=== PATIENT | male | born 1980 | race Caucasian/White ===

== ENCOUNTER 2022-03-05 05:12 | Emergency (ER) | payer MEDICAID, SELFPAY ==
[2022-03-05 05:15] VITALS: BP 152/89; PULSE 55; RESP 18; TEMP 36.6; O2SAT 99; BMI 25.0
[2022-03-05 05:34] LABS: Basophils # 0.1 10^3/uL (0.0-0.1); Basophils % 0.5 %; Eosinophils # 0.1 10^3/uL (0.0-0.8); Eosinophils % 1.1 %; Hematocrit 44.3 % (42.0-52.0); Hemoglobin 14.8 g/dL (11.7-16.6); Lymphocytes # 1.7 10^3/uL (0.8-4.8); Lymphocytes % 13.2 %; Mean Corpuscular HGB Conc 33.4 g/dL (30.0-36.0); Mean Corpuscular Volume 89.7 fl (80-94); Mean Platelet Volume 9.6 fL (7.4-10.4); Monocytes # 0.6 10^3/uL (0.2-0.9); Monocytes % 4.6 %; Neutrophils # 10.39 10^3/uL (1.8-7.7); Neutrophils % 80.1 %; Nucleated Red Blood Cells % 0 %; Platelet Count 220 10^3/cmm (130-400); Red Blood Count 4.94 10^6/uL (4.1-5.3); Red Cell Distribution Width 12.6 % (12.1-15.1)
--- NOTE | 2022-03-05 05:39 | CTR_ITS ---
PROCEDURE INFORMATION: Exam: CT Abdomen And Pelvis Without Contrast Exam date and time: 03/05/2022 5:54 AM Age: 41 years old Clinical indication: Abdominal pain; Flank; Left; Additional info: L flank pain TECHNIQUE: Imaging protocol: Computed tomography of the abdomen and pelvis without contrast. Radiation optimization: All CT scans at this facility use at least one of these dose optimization techniques: automated exposure control; mA and/or kV adjustment per patient size (includes targeted exams where dose is matched to clinical indication); or iterative reconstruction. COMPARISON: No relevant prior studies available. RADIATION DOSE METRICS: Total DLP (mGy-cm): 441.9 FINDINGS: Liver: No acute abnormality on noncontrast imaging. Gallbladder and bile ducts: No acute abnormality. No calcified stones. No ductal dilation. Pancreas: No acute abnormality. No ductal dilation. Spleen: No acute abnormality. Adrenal glands: No acute abnormality. No mass. Kidneys and ureters: Moderate left hydroureteronephrosis secondary to a 6 x 5 mm distal left ureteral calculus or calculi cluster just above the left UVJ. Nonobstructing bilateral renal calculi including 9 mm left renal lower pole calculus. Stomach and bowel: No acute abnormality. No obstruction. No significant bowel thickening. Appendix: No findings to suggest acute appendicitis. Intraperitoneal space: No significant fluid collection. No free air. Vasculature: No acute abnormality. No abdominal aortic aneurysm. Lymph nodes: No enlarged lymph nodes. Urinary bladder: Nondistended urinary bladder. No bladder calculi. Reproductive: Small prostate calcifications. Bones/joints: Old/chronic T12 vertebral body compression fracture with anterior wedging. Soft tissues: No significant soft tissue abnormalities. CT/CT kidney stone [id number] IMPRESSION: 1. Moderate left hydroureteronephrosis secondary to a 6 x 5 mm distal left ureteral calculus or calculi cluster just above the left UVJ. 2. Nonobstructing bilateral renal calculi including 9 mm left renal lower pole calculus.
[2022-03-05] MEDS: sodium chloride 0.9% 1,000 ML 999 ML IV (05:48)
[2022-03-05] MEDS: ondansetron 2 mg/ML SDV 2 mL 4 MG IVP (05:49)
[2022-03-05 05:50] LABS: Alanine Aminotransferase 24 U/L (0-41); Albumin Level 4.3 g/dL (3.5-5.2); Alkaline Phosphatase 72 U/L (40-130); Aspartate Amino Transferase 19 U/L (0-40); Blood Urea Nitrogen 14 mg/dL (6-20); Calcium 9.1 mg/dL (8.5-10.5); Carbon Dioxide 29 mmol/L (22-29); Chloride 105 mmol/L (98-107); Globulin 2.6 g/dL (1.3-4.6); Glomerular Filtration Rate 73.8 mL/min (90-130); Glucose 151 mg/dL (65-115); Lactate (Lactic Acid level) 2.2 mmol/L (0.5-2.2); Lipase 54 U/L (13-60); Osmolality Calculated 297 mOsm/kg (285-295); Sodium 142 mmol/L (136-145); Total Bilirubin 0.4 mg/dL (0.15-1.2); Total Protein 6.9 g/dL (6.6-8.7)
--- NOTE | 2022-03-05 06:00 | ED_ITS ---
Documented by User: Julio Marie, DO 03/05/22 18:29 HPI - Male Genitourinary General: Chief complaint: Urogenital-Male Stated complaint: Low back pain Time Seen by Provider: 03/05/22 05:27 History of Present Illness: 41-year-old male who says he has a known 9 mm left kidney stone. He has had pain on and off for a couple of weeks. He has been doing well until this morning, when he awoke with intense left flank pain radiating to his belly. He vomited a couple of times on the way here. No fever. He is still able to urinate. He notes that his urine looks a little funny . Physical Exam : BLADDER/KIDNEY EXAM: Yes CVA tenderness on the left Back/Pelvis: GENERAL BACK: Yes CVA tenderness Course Vital Signs: Vital signs: Vital Signs Temperature 97.9 F 03/05/22 05:15 Pulse Rate 57 L 03/05/22 08:29 Respiratory Rate 18 03/05/22 08:29 Blood Pressure 107/70 03/05/22 08:29 Pulse Oximetry 98 03/05/22 08:29 Oxygen Delivery Me thod 03/05/22 05:15 MDM - Male Medical Decision Making White blood cell count is 13. BMP is not remarkable. BUN and creatinine are normal. Lactate is 2.2. Lipase is normal. CT stone protocol is pending. On arrival, the patient began to feel better. Currently, he is not experiencing significant nausea or pain. He will be checked out at shift change pending CT results. Lab Data : 03/05/22 05:26 03/05/22 05:26 Radiology Impressions Abdomen/Pelvis CT 03/05/22 05:39 IMPRESSION: 1. Moderate left hydroureteronephrosis secondary to a 6 x 5 mm distal left ureteral calculus or calculi cluster just above the left UVJ. 2. Nonobstructing bilateral renal calculi including 9 mm left renal lower pole calculus. Laboratory Results WBC 13.0 10^3/uL (4.0-10.0) H 03/05/22 05:26 RBC 4.94 10^6/uL (4.1-5.3) 03/05/22 05:26 Hgb 14.8 g/dL (11.7-16.6) 03/05/22 05:26 Hct 44.3 % (42.0-52.0) 03/05/22 05:26 MCV 89.7 fl (80-94) 03/05/22 05:26 MCH 30.0 pg (28.0-34.0) 03/05/22 05:26 MCHC 33.4 g/dL (30.0-36.0) 03/05/22 05:26 RDW 12.6 % (12.1-15.1) 03/05/22 05:26 Plt Count 220 10^3/cmm (130-400) 03/05/22 05:26 MPV 9.6 fL (7.4-10.4) 03/05/22 05:26 Neut % (Auto) 80.1 % 03/05/22 05:26 Lymph % (Auto) 13.2 % 03/05/22 05:26 Woods % (Auto) 4.6 % 03/05/22 05:26 Eos % (Auto) 1.1 % 03/05/22 05:26 Baso % (Auto) 0.5 % 03/05/22 05:26 Neut # (Auto) 10.39 10^3/uL (1.8-7.7) H 03/05/22 05:26 Lymph # (Auto) 1.7 10^3/uL (0.8-4.8) 03/05/22 05:26 [place] # (Auto) 0.6 10^3/uL (0.2-0.9) 03/05/22 05:26 Eos # (Auto) 0.1 10^3/uL (0.0-0.8) 03/05/22 05:26 Baso # (Auto) 0.1 10^3/uL (0.0-0.1) 03/05/22 05:26 Nucleated RBC % (auto) 0 % 03/05/22 05:26 Nucleated RBCs # 0.0 /100WBC 03/05/22 05:26 Sodium 142 mmol/L (136-145) 03/05/22 05:26 Potassium 4.0 mmol/L (3.5-5.1) 03/05/22 05:26 Chloride 105 mmol/L (98-107) 03/05/22 05:26 Carbon Dioxide 29 mmol/L (22-29) 03/05/22 05:26 Anion Gap 12.0 (5-19) 03/05/22 05:26 BUN 14 mg/dL (6-20) 03/05/22 05:26 Creatinine 1.1 mg/dL (0.7-1.2) 03/05/22 05:26 GFR Calculation 73.8 mL/min (90-130) L 03/05/22 05:26 Glucose 151 mg/dL (65-115) H 03/05/22 05:26 Calculated Osmolality 297 mOsm/kg (285-295) H 03/05/22 05:26 Lactate 2.2 mmol/L (0.5-2.2) 03/05/22 05:26 Calcium 9.1 mg/dL (8.5-10.5) 03/05/22 05:26 Total Bilirubin 0.4 mg/dL (0.15-1.2) 03/05/22 05:26 AST 19 U/L (0-40) 03/05/22 05:26 ALT 24 U/L (0-41) 03/05/22 05:26 Alkaline Phosphatase 72 U/L (40-130) 03/05/22 05:26 C-Reactive Protein 3.0 mg/L (0.0-4.9) 03/05/22 05:26 Total Protein 6.9 g/dL (6.6-8.7) 03/05/22 05:26 Albumin 4.3 g/dL (3.5-5.2) 03/05/22 05:26 Globulin 2.6 g/dL (1.3-4.6) 03/05/22 05:26 Lipase 54 U/L (13-60) 03/05/22 05:26 Urine Color Yellow (Yellow) 03/05/22 06:52 Urine Appearance Clear (CLEAR) 03/05/22 06:52 Urine pH 5 (5-7) 03/05/22 06:52 Ur Specific [place] 1.025 (1.005-1.030) 03/05/22 06:52 Urine Protein Neg (Negative) 03/05/22 06:52 Urine Glucose (UA) Norm (Normal) 03/05/22 06:52 Urine Ketones Negative (Negative) 03/05/22 06:52 Urine Blood 3+ (Negative) H 03/05/22 06:52 Urine Nitrate Negative (Negative) 03/05/22 06:52 Urine Bilirubin Neg (Negative) 03/05/22 06:52 Urine Urobilinogen Norm mg/dL (Negative) 03/05/22 06:52 Ur Leukocyte Esterase Negative (Negative) 03/05/22 06:52 Urine RBC 10-15 /hpf (0-2) H 03/05/22 06:52 Urine WBC 15-25 /hpf (0-5) H 03/05/22 06:52 Ur Squamous Epith Cells None /hpf (0-5) 03/05/22 06:52 Calcium Oxalate Crystal 0-4 /hpf H 03/05/22 06:52 Amorphous Sediment Not Reportable 03/05/22 06:52 Urine Bacteria 1+ /hpf (NONE) H 03/05/22 06:52 Urine Mucus 1+ /hpf 03/05/22 06:52 Discharge Plan Discharge Patient Disposition: Home Clinical Impression: Renal colic Condition: Stable Prescriptions: New oxycodone 5 mg capsule 5 mg PO Q6H PRN (Reason: pain) Qty: 10 0RF diclofenac sodium 75 mg tablet,delayed release (DR/EC) 75 mg PO BID Qty: 30 0RF Discharge Orders: Discharge ED (Routine); Ordered 03/05/22 Ordered By: Hermann Alegria Referrals: Caroline Odom FNP [Primary Care Provider] - Patient Instructions: Abdominal Pain (ED), Opioid Safety, Pain Management Activity Restrictions/Additional Instructions: Return for fever greater than 100, vomiting liquids or medications, worsening pain despite treatment, other concerning symptoms. Coding Level of Care Code ED Product Development Intern for Chg Fwd Exam Comprehensive Documented by User: Hermann Alegria DO 03/05/22 08:05 HPI - Male Genitourinary General: Chief complaint: Urogenital-Male Stated complaint: Low back pain Time Seen by Provider: 03/05/22 05:27 Review of Systems General: Reports: 10 or more systems reviewed and unremarkable except in HPI and below Physical Exam Const: COMMON NORMALS: no acute distress, patient oriented x3 and alert GENERAL APPEARANCE: cooperative ORIENTATION/CONSCIOUSNESS: Yes awake, Yes oriented to person, Yes oriented to place and Yes oriented to time HENMT: COMMON NORMALS: normocephalic, atraumatic, external ears normal, Normal external nose present and moist oral mucous membranes HEAD & SCALP: normal to inspection, normocephalic and atraumatic NOSE: Normal external nose present GENERAL EAR: hearing grossly impaired EXTERNAL EAR: Yes external ears normal Eye: COMMON NORMALS: Equal, round and reactive pupils present, EOMs intact bilaterally, conjunctivae normal and no scleral icterus GENERAL EYE: lisa earance normal, both eyes and all related structures EYELID: eyelids normal CONJUNCTIVA: Yes conjunctivae normal SCLERA: sclerae normal PUPIL: Yes Equal, round and reactive pupils present Neck/C-Spine: COMMON NORMALS: full ROM, supple and no JVD GENERAL: Yes normal visual inspection Lymph: LYMPHATIC: no lymphadenopathy noted and no lymphedema noted Chest: COMMONS NORMALS: normal inspection of the chest Resp: COMMON NORMALS: normal respiratory effort, No retractions and No use of accessory muscles Cardio: COMMON NORMALS: no JVD, regular rate and regular rhythm RATE: regular rate RHYTHM: regular rhythm GI: COMMON NORMALS: Normal to inspection, nondistended, normoactive bowel sounds present : COMMON NORMALS: Yes no CVA tenderness BLADDER/KIDNEY EXAM: Yes no CVA tenderness Back/Pelvis: COMMON NORMALS: no CVA tenderness and thoracic and lumbar spine normal to inspection Extremity: COMMON NORMALS: normal to inspection, full ROM and capillary refill normal GENERAL: Yes normal exam except as noted Neuro: COMMON NORMALS: patient oriented x3, CN's II-XII intact bilaterally, moves all extremities, no focal motor deficits, no sensory deficits noted and gait normal SENSORIUM/ORIENTATION: Yes alert, Yes oriented to person, Yes oriented to place and Yes oriented to time Psych: COMMON NORMALS: mental status grossly normal, Normal thought process present, cooperative and normal affect THOUGHT PROCESS: Normal thought process present Skin: COMMON NORMALS: no rashes or lesions noted and no wounds GENERAL SKIN EXAM: no rashes or lesions noted Course Vital Signs: Vital signs: Vital Signs Temperature 97.9 F 03/05/22 05:15 Pulse Rate 57 L 03/05/22 08:29 Respiratory Rate 18 03/05/22 08:29 Blood Pressure 107/70 03/05/22 08:29 Pulse Oximetry 98 03/05/22 08:29 Oxygen Delivery Wy thod 03/05/22 05:15 MDM - Male Medical Decision Making White blood cell count is 13. BMP is not remarkable. BUN and creatinine are normal. Lactate is 2.2. Lipase is normal. CT stone protocol is pending. On arrival, the patient began to feel better. Currently, he is not experiencing significant nausea or pain. He will be checked out at shift change pending CT results. Patient signed out to or pending CT scan of abdomen. CT scan with a 6 mm stone. Patient without evidence of significant renal insufficiency. No evidence of UTI on UA. Patient with close follow-up with urology this week. Will place pain management as needed. Patient was given strict return precautions and recommended routine outpatient follow-up. Lab Data : 03/05/22 05:26 03/05/22 05:26 Radiology Impressions Abdomen/Pelvis CT 03/05/22 05:39 IMPRESSION: 1. Moderate left hydroureteronephrosis secondary to a 6 x 5 mm distal left ureteral calculus or calculi cluster just above the left UVJ. 2. Nonobstructing bilateral renal calculi including 9 mm left renal lower pole calculus. Laboratory Results WBC 13.0 10^3/uL (4.0-10.0) H 03/05/22 05:26 RBC 4.94 10^6/uL (4.1-5.3) 03/05/22 05:26 Hgb 14.8 g/dL (11.7-16.6) 03/05/22 05:26 Hct 44.3 % (42.0-52.0) 03/05/22 05:26 MCV 89.7 fl (80-94) 03/05/22 05:26 MCH 30.0 pg (28.0-34.0) 03/05/22 05:26 MCHC 33.4 g/dL (30.0-36.0) 03/05/22 05:26 RDW 12.6 % (12.1-15.1) 03/05/22 05:26 Plt Count 220 10^3/cmm (130-400) 03/05/22 05:26 MPV 9.6 fL (7.4-10.4) 03/05/22 05:26 Neut % (Auto) 80.1 % 03/05/22 05:26 Lymph % (Auto) 13.2 % 03/05/22 05:26 Woods % (Auto) 4.6 % 03/05/22 05:26 Eos % (Auto) 1.1 % 03/05/22 05:26 Baso % (Auto) 0.5 % 03/05/22 05:26 Neut # (Auto) 10.39 10^3/uL (1.8-7.7) H 03/05/22 05:26 Lymph # (Auto) 1.7 10^3/uL (0.8-4.8) 03/05/22 05:26 [place] # (Auto) 0.6 10^3/uL (0.2-0.9) 03/05/22 05:26 Eos # (Auto) 0.1 10^3/uL (0.0-0.8) 03/05/22 05:26 Baso # (Auto) 0.1 10^3/uL (0.0-0.1) 03/05/22 05:26 Nucleated RBC % (auto) 0 % 03/05/22 05:26 Nucleated RBCs # 0.0 /100WBC 03/05/22 05:26 Sodium 142 mmol/L (136-145) 03/05/22 05:26 Potassium 4.0 mmol/L (3.5-5.1) 03/05/22 05:26 Chloride 105 mmol/L (98-107) 03/05/22 05:26 Carbon Dioxide 29 mmol/L (22-29) 03/05/22 05:26 Anion Gap 12.0 (5-19) 03/05/22 05:26 BUN 14 mg/dL (6-20) 03/05/22 05:26 Creatinine 1.1 mg/dL (0.7-1.2) 03/05/22 05:26 GFR Calculation 73.8 mL/min (90-130) L 03/05/22 05:26 Glucose 151 mg/dL (65-115) H 03/05/22 05:26 Calculated Osmolality 297 mOsm/kg (285-295) H 03/05/22 05:26 Lactate 2.2 mmol/L (0.5-2.2) 03/05/22 05:26 Calcium 9.1 mg/dL (8.5-10.5) 03/05/22 05:26 Total Bilirubin 0.4 mg/dL (0.15-1.2) 03/05/22 05:26 AST 19 U/L (0-40) 03/05/22 05:26 ALT 24 U/L (0-41) 03/05/22 05:26 Alkaline Phosphatase 72 U/L (40-130) 03/05/22 05:26 C-Reactive Protein 3.0 mg/L (0.0-4.9) 03/05/22 05:26 Total Protein 6.9 g/dL (6.6-8.7) 03/05/22 05:26 Albumin 4.3 g/dL (3.5-5.2) 03/05/22 05:26 Globulin 2.6 g/dL (1.3-4.6) 03/05/22 05:26 Lipase 54 U/L (13-60) 03/05/22 05:26 Urine Color Yellow (Yellow) 03/05/22 06:52 Urine Appearance Clear (CLEAR) 03/05/22 06:52 Urine pH 5 (5-7) 03/05/22 06:52 Ur Specific [place] 1.025 (1.005-1.030) 03/05/22 06:52 Urine Protein Neg (Negative) 03/05/22 06:52 Urine Glucose (UA) Norm (Normal) 03/05/22 06:52 Urine Ketones Negative (Negative) 03/05/22 06:52 Urine Blood 3+ (Negative) H 03/05/22 06:52 Urine Nitrate Negative (Negative) 03/05/22 06:52 Urine Bilirubin Neg (Negative) 03/05/22 06:52 Urine Urobilinogen Norm mg/dL (Negative) 03/05/22 06:52 Ur Leukocyte Esterase Negative (Negative) 03/05/22 06:52 Urine RBC 10-15 /hpf (0-2) H 03/05/22 06:52 Urine WBC 15-25 /hpf (0-5) H 03/05/22 06:52 Ur Squamous Epith Cells None /hpf (0-5) 03/05/22 06:52 Calcium Oxalate Crystal 0-4 /hpf H 03/05/22 06:52 Amorphous Sediment Not Reportable 03/05/22 06:52 Urine Bacteria 1+ /hpf (NONE) H 03/05/22 06:52 Urine Mucus 1+ /hpf 03/05/22 06:52 Discharge Plan Discharge Patient Disposition: Home Clinical Impression: Renal colic Condition: Stable Prescriptions: New oxycodone 5 mg capsule 5 mg PO Q6H PRN (Reason: pain) Qty: 10 0RF diclofenac sodium 75 mg tablet,delayed release (DR/EC) 75 mg PO BID Qty: 30 0RF Discharge Orders: Discharge ED (Routine); Ordered 03/05/22 Ordered By: Hermann Alegria Referrals: Caroline Odom FNP [Primary Care Provider] - Patient Instructions: Abdominal Pain (ED), Opioid Safety, Pain Management Activity Restrictions/Additional Instructions: Return for fever greater than 100, vomiting liquids or medications, worsening pain despite treatment, other concerning symptoms. Coding Level of Care Code ED Product Development Intern for Lauren Fwd Exam Comprehensive
[2022-03-05 06:44] VITALS: PULSE 62; RESP 16; O2SAT 96
[2022-03-05 07:58] LABS: Specific Gravity, Urine 1.025 (1.005-1.030); Urine Appearance Clear (CLEAR); Urine Color Yellow (Yellow); pH Urine 5 (5-7)
[2022-03-05 07:59] LABS: Add Urine Culture? Yes; Add Urine Microscopic? YES; Bacteria Urine 1+ /hpf; Bilirubin Urine Neg (Negative); Blood Urine 3+ (Negative); Calcium Oxalate Crystals Urine 0-4 /hpf; Glucose Urine UA Norm (Normal); Ketones Urine Negative (Negative); Leukocyte Esterase Urine Negative (Negative); Mucus Urine 1+ /hpf; Nitrate Urine Negative (Negative); Protein Urine Neg (Negative); Urobilinogen Urine Norm (Negative); WBC Urine 15-25 /hpf (0-5)
[2022-03-05 08:29] VITALS: BP 107/70; PULSE 57; RESP 18; O2SAT 98
== END 2022-03-05 08:40 | disposition home or self-care (01) ==
PROVIDERS: Emergency Medicine; Emergency Provider Emergency Medicine; PCP Nurse Practitioner Family
DX: N20.0 Calculus of kidney (principal); N23 Unspecified renal colic
CPT/HCPCS: 74176; 80053; 81001; 83605; 83690; 85025; 86140; 87086; 96361; 96374; 99285; J2405; J7030

== ENCOUNTER 2022-03-15 19:30 | Emergency (ER) | payer MEDICAID, SELFPAY ==
[2022-03-15 19:45] VITALS: BP 138/92; PULSE 62; RESP 18; TEMP 36.4; O2SAT 100; BMI 25.0
--- NOTE | 2022-03-15 20:33 | CTR_ITS ---
PROCEDURE INFORMATION: Exam: CT Abdomen And Pelvis Without Contrast Exam date and time: 03/15/2022 8:54 PM Age: 41 years old Clinical indication: Abdominal pain; Flank; Left; Additional info: L flank pain TECHNIQUE: Imaging protocol: Computed tomography of the abdomen and pelvis without contrast. Radiation optimization: All CT scans at this facility use at least one of these dose optimization techniques: automated exposure control; mA and/or kV adjustment per patient size (includes targeted exams where dose is matched to clinical indication); or iterative reconstruction. COMPARISON: CT kidney stone [id number] 03/05/2022 5:54 AM RADIATION DOSE METRICS: Total DLP (mGy-cm): 521.22 FINDINGS: Lungs: Lung bases are clear. Liver: The liver is normal. Gallbladder and bile ducts: The gallbladder is normal. There is no biliary dilation. Pancreas: The pancreas is unremarkable. Spleen: The spleen is unremarkable. Adrenal glands: The adrenal glands are unremarkable. Kidneys and ureters: There is an 8 x 5 x 5 mm stone in the distal left ureter at the ureterovesical junction. The stone is positioned slightly distal to its position observed on 03/05/2022. Moderate left hydronephrosis and diffuse hydroureter is unchanged since 03/05/2022. There is a nonobstructive stone in the left kidney. There is a nonobstructive stone in the right kidney. Stomach and bowel: The stomach is unremarkable. The small bowel is nondilated. The colon is unremarkable. Appendix: The appendix is not visible. Intraperitoneal space: There is no intraperitoneal free air. Vasculature: The aorta is unremarkable. There is no aneurysm. Lymph nodes: There is no lymphadenopathy in the retroperitoneum, mesentery, pelvis or inguinal regions. Urinary bladder: The urinary bladder is unremarkable. Reproductive: The prostate and seminal vesicles are unremarkable. 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 Chronic mild T12 superior endplate compression fracture. Soft tissues: The abdominal wall is intact. CT/CT kidney stone [id number] IMPRESSION: 1. 8 mm stone in the distal left ureter has moved 2 cm more distally since 03/05/2022. 2. Stable left hydronephrosis and hydroureter. 3. Bilateral nonobstructive nephrolithiasis.
[2022-03-15 20:39] LABS: Basophils # 0.1 10^3/uL (0.0-0.1); Basophils % 0.8 %; Eosinophils # 0.2 10^3/uL (0.0-0.8); Eosinophils % 2.1 %; Hematocrit 41.2 % (42.0-52.0); Hemoglobin 13.6 g/dL (11.7-16.6); Lymphocytes # 2.4 10^3/uL (0.8-4.8); Lymphocytes % 27.5 %; Mean Corpuscular Hemoglobin 29.6 pg (28.0-34.0); Mean Corpuscular Volume 89.8 fl (80-94); Mean Platelet Volume 9.5 fL (7.4-10.4); Monocytes # 0.7 10^3/uL (0.2-0.9); Monocytes % 7.9 %; Neutrophils # 5.36 10^3/uL (1.8-7.7); Neutrophils % 61.5 %; Nucleated Red Blood Cells % 0 %; Platelet Count 211 10^3/cmm (130-400); Red Blood Count 4.59 10^6/uL (4.1-5.3); Red Cell Distribution Width 12.7 % (12.1-15.1); White Blood Count 8.7 10^3/uL (4.0-10.0)
--- NOTE | 2022-03-15 20:40 | W.ED.ABDPA2 ---
HPI - Abdominal Pain General: Chief Complaint: Abdominal Pain Stated Complaint: left side back pain Time Seen by Provider: 03/15/22 20:20 Source: patient Mode of arrival: ambulatory Limitations: no limitations History of Present Illness: 41-year-old male who has a history of kidney stones states has been having increasing flank pain throughout the day. States pain is sharp in nature rates it a 9 out of 10 has had some nausea denies any vomiting denies fever he denies any worsening proving factors. Denies any radiation of his pain. Associated Symptoms: Reports nausea; Denies chills and fever(s) Review of Systems Const: Denies: fever(s), chills, body aches or change in appetite Eyes: Denies: blurry vision or eye discomfort ENMT: Denies: throat pain or dental pain Card: Denies: chest pain Resp: Denies: dyspnea GI: Reports: abdominal pain and nausea : Reports: flank pain Musc: Denies: neck pain or back pain Skin/Breast: Denies: rash Neuro: Denies: headache(s) Psych: Denies: depression Chele/Lymph: Denies: easy bruising All/Imm: Denies: urticaria PFS ED PFSH: Medical History (Updated 03/15/22 @ 21:42 by Ale Haider MD) Kidney stone Social History Substance/Drug Use: never Physical Exam Const: COMMON NORMALS: no acute distress, patient oriented x3 and healthy appearing HENMT: COMMON NORMALS: normocephalic and atraumatic HEAD & SCALP: normocephalic and atraumatic Eye: COMMON NORMALS: Equal, round and reactive pupils present and EOMs intact bilaterally PUPIL: Yes Equal, round and reactive pupils present Neck/C-Spine: COMMON NORMALS: full ROM and supple Chest: COMMONS NORMALS: normal inspection of the chest and normal palpation of entire chest wall Resp: COMMON NORMALS: normal respiratory effort, No retractions, No use of accessory muscles and clear to auscultation bilaterally AUSCULTATION: clear to auscultation bilaterally Cardio: COMMON NORMALS: regular rate, regular rhythm and No murmurs present (Cardio) RATE: regular rate RHYTHM: regular rhythm GI: COMMON NORMALS: Normal to inspection, nondistended, normoactive bowel sounds present, Soft to palpation, non-tender and no masses PALPATION: Yes Soft to palpation Extremity: COMMON NORMALS: normal to inspection and full ROM Neuro: COMMON NORMALS: patient oriented x3, moves all extremities and no focal motor deficits Psych: COMMON NORMALS: mental status grossly normal, Normal thought process present and cooperative THOUGHT PROCESS: Normal thought process present Skin: COMMON NORMALS: no rashes or lesions noted and no wounds GENERAL SKIN EXAM: no rashes or lesions noted Course Vital Signs: Vital signs: Vital Signs Temperature 97.5 F L 03/15/22 19:45 Pulse Rate 62 03/15/22 19:45 Respiratory Rate 18 03/15/22 19:45 Blood Pressure 138/92 03/15/22 19:45 Pulse Oximetry 100 03/15/22 19:45 Oxygen Delivery Me thod 03/15/22 19:45 MDM - Abdominal Pain Medical Decision Making Patient presents here with a kidney stone has moved he is currently pain-free we will discharge him with a strainer he is to follow-up with urology he is return if worsening he understands agrees to plan. Lab Data : 03/15/22 20:33 03/15/22 20:33 Labs/Radiology: Radiology Impressions Abdomen/Pelvis CT 03/15/22 20:33 IMPRESSION: 1. 8 mm stone in the distal left ureter has moved 2 cm more distally since 03/05/2022. 2. Stable left hydronephrosis and hydroureter. 3. Bilateral nonobstructive nephrolithiasis. Laboratory Results WBC 8.7 10^3/uL (4.0-10.0) 03/15/22 20:33 RBC 4.59 10^6/uL (4.1-5.3) 03/15/22 20:33 Hgb 13.6 g/dL (11.7-16.6) 03/15/22 20:33 Hct 41.2 % (42.0-52.0) L 03/15/22 20:33 MCV 89.8 fl (80-94) 03/15/22 20:33 MCH 29.6 pg (28.0-34.0) 03/15/22 20:33 MCHC 33.0 g/dL (30.0-36.0) 03/15/22 20:33 RDW 12.7 % (12.1-15.1) 03/15/22 20:33 Plt Count 211 10^3/cmm (130-400) 03/15/22 20:33 MPV 9.5 fL (7.4-10.4) 03/15/22 20:33 Neut % (Auto) 61.5 % 03/15/22 20: Lymph % (Auto) 27.5 % 03/15/22 20:33 [place] % (Auto) 7.9 % 03/15/22 20: Eos % (Auto) 2.1 % 03/15/22 20:33 Baso % (Auto) 0.8 % 03/15/22 20: Neut # (Auto) 5.36 10^3/uL (1.8-7.7) 03/15/22 20: Lymph # (Auto) 2.4 10^3/uL (0.8-4.8) 03/15/22 20:33 [place] # (Auto) 0.7 10^3/uL (0.2-0.9) 03/15/22 20: Eos # (Auto) 0.2 10^3/uL (0.0-0.8) 03/15/22 20:33 Baso # (Auto) 0.1 10^3/uL (0.0-0.1) 03/15/22 20:33 Nucleated RBC % (auto) 0 % 03/15/22 20: Nucleated RBCs # 0.0 /100WBC 03/15/22 20:33 Sodium 140 mmol/L (136-145) 03/15/22 20:33 Potassium 4.1 mmol/L (3.5-5.1) 03/15/22 20:33 Chloride 103 mmol/L (98-107) 03/15/22 20:33 Carbon Dioxide 30 mmol/L (22-29) H 03/15/22 20:33 Anion Gap 11.1 (5-19) 03/15/22 20:33 BUN 15 mg/dL (6-20) 03/15/22 20:33 Creatinine 1.2 mg/dL (0.7-1.2) 03/15/22 20:33 GFR Calculation 66.7 mL/min (90-130) L 03/15/22 20:33 Glucose 99 mg/dL (65-115) 03/15/22: Calculated Osmolality 291 mOsm/kg (285-295) 03/15/22 20: Calcium 10.0 mg/dL (8.5-10.5) 03/15/22 20: Total Bilirubin 0.6 mg/dL (0.15-1.2) 03/15/22 20: AST 22 U/L (0-40) 03/15/22 20: ALT 21 U/L (0-41) 03/15/22: Alkaline Phosphatase 70 U/L (40-130) 03/15/22 20: Total Protein 6.6 g/dL (6.6-8.7) 03/15/22 20: Albumin 4.0 g/dL (3.5-5.2) 03/15/22 20: Globulin 2.6 g/dL (1.3-4.6) 03/15/22 20: Lipase 30 U/L (13-60) 03/15/22 20: Urine Color Yellow (Yellow) 03/15/22: Urine Appearance Sl hazy (CLEAR) A 03/15/22: Urine pH 7 (5-7) 03/15/22: Ur Specific [place] 1.010 (1.005-1.030) 03/15/22: Urine Protein Trace (Negative) 03/15/22 20: Urine Glucose (UA) Norm (Normal) 03/15/22 20: Urine Ketones Negative (Negative) 03/15/22: Urine Blood 2+ (Negative) H 03/15/22: Urine Nitrate Negative (Negative) 03/15/22: Urine Bilirubin Neg (Negative) 03/15/22: Urine Urobilinogen 1 mg/dL (Negative) H 03/15/22 20: Ur Leukocyte Esterase 1+ (Negative) H 03/15/22: Urine RBC 40-50 /hpf (0-2) H 03/15/22 20: Urine WBC 15-25 /hpf (0-5) H 03/15/22 20: Ur Squamous Epith Cells 0-4 /hpf (0-5) H 03/15/22 20: Amorphous Sediment 1+ /hpf 03/15/22 20:27 Urine Bacteria 2+ /hpf (NONE) H 03/15/22 20:27 Discharge Plan Discharge Patient Disposition: Home Clinical Impression: Kidney stone Prescriptions: New hydrocodone-acetaminophen 5-325 mg tablet 1 tab PO Q6H PRN (Reason: pain) Qty: 14 0RF ondansetron 4 mg tablet,disintegrating 4 mg PO Q6H PRN (Reason: nausea and vomiting) Qty: 14 0RF Flomax 0.4 mg capsule 0.4 mg PO DAILY Qty: 5 0RF No Action oxycodone 5 mg capsule 5 mg PO Q6H PRN (Reason: pain) Qty: 10 0RF diclofenac sodium 75 mg tablet,delayed release (DR/EC) 75 mg PO BID Qty: 30 0RF Discharge Orders: Discharge ED (Routine); Ordered 03/15/22 Ordered By: Ale Haider Referrals: Enmanuel Perez MD [Physician] - 1-3 days Caroline Odom FNP [Primary Care Provider] - Discharge Diet: Advance as tolerated Discharge Activity: Resume usual activity Patient Instructions: Kidney Stones (ED), Opioid Safety Coding Level of Care Code ED Cable Reeler for Chg Fwd Exam Comprehensive
[2022-03-15] MEDS: HYDROmorphone 1 mg/mL INJ 1 mL 0.5 MG IVP (20:45)
[2022-03-15] MEDS: ondansetron 2 mg/ML SDV 2 mL 4 MG IVP (20:45)
[2022-03-15] MEDS: sodium chloride 0.9% 1,000 ML 999 ML IV (20:45)
[2022-03-15 21:02] LABS: Alanine Aminotransferase 21 U/L (0-41); Alkaline Phosphatase 70 U/L (40-130); Anion Gap 11.1 (5-19); Aspartate Amino Transferase 22 U/L (0-40); Blood Urea Nitrogen 15 mg/dL (6-20); Carbon Dioxide 30 mmol/L (22-29); Chloride 103 mmol/L (98-107); Globulin 2.6 g/dL (1.3-4.6); Glomerular Filtration Rate 66.7 mL/min (90-130); Glucose 99 mg/dL (65-115); Lipase 30 U/L (13-60); Osmolality Calculated 291 mOsm/kg (285-295); Potassium 4.1 mmol/L (3.5-5.1); Sodium 140 mmol/L (136-145); Total Bilirubin 0.6 mg/dL (0.15-1.2); Total Protein 6.6 g/dL (6.6-8.7)
[2022-03-15 21:04] LABS: Bilirubin Urine Neg (Negative); Blood Urine 2+ (Negative); Glucose Urine UA Norm (Normal); Ketones Urine Negative (Negative); Nitrate Urine Negative (Negative); Protein Urine Trace (Negative); Urine Appearance SL Hazy (CLEAR); Urine Color Yellow (Yellow); Urobilinogen Urine 1 mg/dL (Negative); pH Urine 7 (5-7)
[2022-03-15 21:05] LABS: Add Urine Culture? Yes; Add Urine Microscopic? YES; Amorphous Sediment Urine 1+ /hpf; Bacteria Urine 2+ /hpf; Leukocyte Esterase Urine 1+ (Negative); RBC Urine 40-50 /hpf (0-2); Squamous Epithelial Cell Urine 0-4 /hpf (0-5); WBC Urine 15-25 /hpf (0-5)
[2022-03-15] MEDS: HYDROcodone-acetaminophen 5-325 mg Tablet 1 TAB PO (22:02)
[2022-03-15 22:05] VITALS: BP 135/79; PULSE 65; RESP 18; TEMP 36.4; O2SAT 100
--- NOTE | 2022-03-16 09:50 | DCPLANNER ---
Addendum entered by Amarilis Osborne 05/18/22 10:26: Patient had a follow up appointment scheduled with urology - patient did attend appointment Addendum entered by Amarilis Osborne 03/17/22 13:17: Patient has a follow up appointment scheduled for Sunday, March 20, [address]22 at 4:[address] Perez at urology. Clinic will call patient with appointment information. Original Note: electronics commodity manager had a message to schedule a follow up appointment for patient with urology. electronics commodity manager sent patients information to the front office staff at urology. Patients information will be printed and reviewed. Clinic will call patient with appointment information.
== END 2022-03-15 22:07 | disposition home or self-care (01) ==
PROVIDERS: Emergency Provider Emergency Medicine; PCP Nurse Practitioner Family
DX: N20.0 Calculus of kidney (principal)
CPT/HCPCS: 74176; 80053; 81001; 83690; 85025; 87086; 96361; 96374; 96375; 99285; J1170; J2405; J7030

== ENCOUNTER 2022-03-20 15:00 | Outpatient (CLI) | payer MEDICAID, SELFPAY ==
--- NOTE | 2022-03-20 15:14 | XR_ITS ---
WS: [id number] Exam: XR KUB [id number] Date/Time of Exam: 03/20/2022 3:16 PM Reason For Exam: STONES No bowel obstruction or free air. Calcifications superimpose left kidney and apparently represent kno wn renal stones. Pelvic calcifications are noted which are nonspecific. Moderate amount retained stoo l in the colon. Regional bony elements are intact. No sign of organ enlargement. XR/XR KUB [id number] IMPRESSION: 1. No acute finding. 2. Calcifications superimposing the left kidney apparently representing known r enal stones. Nonspecific pelvic calcifications.
== END 2022-03-20 15:01 | disposition home or self-care (01) ==
LOC: RAD 15:02
PROVIDERS: PCP Nurse Practitioner Family; Visit Provider Urology
DX: N20.0 Calculus of kidney (principal)
CPT/HCPCS: 74018; 81003

== ENCOUNTER 2023-06-05 06:00 | Outpatient (RCR) | payer MEDICAID, SELFPAY | END 2023-06-27 23:59 | disposition home or self-care (01) | LOC: MPT 06:00 | PROVIDERS: Visit Provider Family Medicine | DX: M54.6 Pain in thoracic spine (principal); G89.29 Other chronic pain | CPT/HCPCS: 97110; 97162; G0283 ==

== ENCOUNTER 2023-06-28 06:00 | Outpatient (RCR) | payer MEDICAID, SELFPAY | END 2023-07-26 23:59 | disposition home or self-care (01) | LOC: MPT 06:00 | PROVIDERS: Visit Provider Family Medicine | DX: M54.6 Pain in thoracic spine (principal); G89.29 Other chronic pain | CPT/HCPCS: 97110; G0283 ==

== ENCOUNTER 2023-09-21 06:00 | Outpatient (RCR) | payer MEDICAID, SELFPAY | END 2023-09-25 23:59 | disposition home or self-care (01) | LOC: MPT 06:00 | PROVIDERS: Visit Provider Family Medicine | DX: M54.6 Pain in thoracic spine (principal); G89.29 Other chronic pain | CPT/HCPCS: 97110; 97530 ==

== ENCOUNTER 2023-09-26 06:00 | Outpatient (RCR) | payer MEDICAID, SELFPAY | END 2023-10-26 23:59 | disposition home or self-care (01) | LOC: MPT 06:00 | PROVIDERS: Visit Provider Family Medicine | DX: M54.6 Pain in thoracic spine (principal); G89.29 Other chronic pain | CPT/HCPCS: 97110; 97530 ==